=== PATIENT | male | born 1980 | race Caucasian/White ===

== ENCOUNTER 2021-01-14 16:08 | Emergency (ER) | payer SELFPAY ==
[~2021-01-14] VITALS: Ht 167.7 cm; Wt 70.8 kg
--- NOTE | 2021-01-14 16:20 | ED General ---
General Stated Complaint: METH USE Source of Information: Patient, EMS, Police Exam Limitations: No Limitations History of Present Illness Date Seen by Provider: Jan 14, 2021 Time Seen by Provider: 16:00 Initial Comments Khang is a 40-year-old male who presents to the emergency room by EMS also in police custody after being found running naked in the street. Khang states that he was cleaning a house and had done methamphetamine earlier in the day. He complains of being very hot and sweaty. He is concerned that he may have Covid. No symptoms of sore throat, runny nose or shortness of breath. He stat es he has been around people that have had Covid. He denies chest pain, abdominal pain, nausea vomiting. He states that he injured himself running through some bushes. Presents with multiple superficial scratches to his lower extremities. No obvious other external signs of injury. He is profusely diaphoretic on presentation. It is 103 degrees outside. No other chronic medical conditions other than smoking and using IV meth. He does smoke cigarettes. All other review of systems reviewed and negative except as stated. Timing/Duration: 1 Hour Severity: Moderate Associated Systoms: Diaphoresis Allergies and Home Medications Allergies Coded Allergies: Penicillins (Verified Allergy, Unknown, HIVES, 12/26/11) Patient Home Medication List Home Medication List Reviewed: Yes Review of Systems Review of Systems Constitutional: see HPI, diaphoresis EENTM: no symptoms reported Respiratory: cough Cardiovascular: no symptoms reported Gastrointestinal: no symptoms reported Genitourinary: no symptoms reported Musculoskeletal: no symptoms reported Skin: other (Superficial scratches to the lower extremities) Psychiatric/Neurological: Anxiety, Other (Obviously intoxicated) Physical Exam Vital Signs Vital Signs - First Documented 01/14/21 16:11 Temp 37.3 Pulse 136 Resp 22 B/P (MAP) 128/92 (104) Pulse Ox 98 O2 Delivery Room Air Capillary Refill : Height, Weight, BMI Height: '" Weight: lbs. oz. kg; BMI Method:Estimated General Appearance: WD/WN, Anxious, Mild Distress Eyes: Bilateral Eye Normal Inspection, Bilateral Eye PERRL, Bilateral Eye EOMI Neck: Normal Inspection Respiratory: Lungs Clear, Normal Breath Sounds, No Accessory Muscle Use, No Respiratory Distress Cardiovascular: Regular Rate, Rhythm Gastrointestinal: Non Tender, Soft Extremity: Normal Range of Motion, Non Tender, No Calf Tenderness Neurologic/Psychiatric: Alert, Oriented x3, No Motor/Sensory Deficits, Normal Mood/Affect, Other (Obviously intoxicated with pressured speech, flight of ideas) Skin: Normal Color, Warm/Dry, Other (Holdable superficial scratches to the bilateral lower extremities) Progress/Results/Core Measures Suspected Sepsis SIRS Temperature: Pulse: Respiratory Rate: Blood Pressure / Mean: Results/Orders Lab Results Laboratory Tests Test 01/14/21 16:15 Range/Units SARS-CoV-2 RNA (RT-PCR) Not Detected Not Detecte My Orders Orders - PRAVEENA DALTON MD Covid 19 Inhouse Test (01/14/21 16:15) Vital Signs/I&O 01/14/21 16:11 Temp 37.3 Pulse 136 Resp 22 B/P (MAP) 128/92 (104) Pulse Ox 98 O2 Delivery Room Air Capillary Refill : Progress Note : Time: 17:34 Progress Note covid not detected. will discharge to home Departure Impression Primary Impression: Methamphetamine intoxication Disposition: 01 HOME, SELF-CARE Condition: Stable Departure-Patient Inst. Decision time for Depature: 16:19 Referrals: NO,LOCAL PHYSICIAN (PCP/Family) Primary Care Physician Patient Instructions: Drug Abuse and Drug Addiction (DC) Add. Discharge Instructions: try and stop using meth. get your covid vaccine. PRAVEENA DALTON MD Jan 14, 2021 16:20
[2021-01-14 18:08] VITALS: BP 132/88
== END 2021-01-14 17:55 | disposition home or self-care (01) ==
LOC: EDUNIT# 16:08 → ER 16:13
DX: F15.929 Other stimulant use, unspecified with intoxication, unspecified (principal); F17.210 Nicotine dependence, cigarettes, uncomplicated; Z20.822 Contact with and (suspected) exposure to COVID-19
CPT/HCPCS: 87636; 99284

== ENCOUNTER 2022-02-03 17:31 | Emergency (ER) | payer SELFPAY ==
[~2022-02-03] VITALS: Ht 167.7 cm; Wt 79.4 kg
[2022-02-03] MEDS ORDERED: LACTATED RINGERS 1,000 ML IV ONE (18:00)
[2022-02-03 18:03] LABS: BASOPHILS % (AUTO) 0 % (0-10); EOSINOPHILS # (AUTO) 0.1 10^3/uL (0.0-0.3); EOSINOPHILS % (AUTO) 1 % (0-10); HEMATOCRIT 42 % (40-54); HEMOGLOBIN 14.9 g/dL (13.3-17.7); LYMPHOCYTES # (AUTO) 2.5 10^3/uL (1.0-4.0); LYMPHOCYTES % (AUTO) 34 % (12-44); MEAN CORPUSCULAR HEMOGLOBIN 32 pg (25-34); MEAN CORPUSCULAR HGB CONC 36 g/dL (32-36); MEAN CORPUSCULAR VOLUME 90 fL (80-99); MONOCYTES # (AUTO) 0.5 10^3/uL (0.0-1.0); MONOCYTES % (AUTO) 7 % (0-12); NEUTROPHILS # (AUTO) 4.3 10^3/uL (1.8-7.8); NEUTROPHILS % (AUTO) 58 % (42-75); PLATELET COUNT 188 10^3/uL (130-400); WHITE BLOOD COUNT 7.4 10^3/uL (4.3-11.0)
[2022-02-03 18:09] LABS: ALBUMIN 3.8 GM/DL (3.2-4.5); CHLORIDE 106 MMOL/L (98-107); POTASSIUM 3.2 MMOL/L (3.6-5.0); SODIUM 138 MMOL/L (135-145)
--- NOTE | 2022-02-03 18:09 | ED General ---
General Chief Complaint: Substance Abuse Stated Complaint: DRUG USE Nursing Triage Note: Pt arrives via EMS to ED2. Pt reports taking meth 1 hour [employer], stated he turned bright red, took 4 benadryl because he believed he was having an allergic reaction. Pt denies pain. Pt is red, but EMS reports redness has decreased since they arrived on scene. Source of Information: Patient History of Present Illness Date Seen by Provider: Feb 03, 2022 Time Seen by Provider: 17:50 Initial Comments PT ARRIVES VIA EMS STATES HE SHOT UP METH AND THINKS HE HAD AN ALLERGIC REACTION--INJECTED ABOUT AN HOUR PRIOR TO ARRIVAL STATES HE TURNED BRIGHT RED AND HAD A SOME ITCHING ALL OVER NO SWELLING ANYWHERE NO DIFFICULTY BREATHING NO NAUSEA/VOMITING STATES HE SHOT UP IN HIS LEFT ARM--NO LOCAL REACTION AT INJECTION SITE. PT WITH LONGSTANDING HISTORY OF IV DRUG USE, NEVER HAD THIS REACTION BEFORE PT STATES HE HAS NOT USED ANY OTHER DRUGS TODAY, BUT DID DRINK "1 BEER" EARLIER TODAY PT TOOK 4 BENADRYL PRIOR TO ARRIVAL, STATES HE IS NO LONGER ITCHING, BUT IS STILL RED. STATES HE HAS BEEN OUT IN THE HEAT MOST OF THE DAY--FROM [id number] TODAY--TEMP IN THE 90'S TODAY PT IS ESSENTIALLY HOMELESS, WAS "STAYING WITH SOMEONE" EARLIER TODAY, BUT GOT KICKED OUT "AFTER ALL THIS HAPPENED" --JUST PRIOR TO ARRIVAL. PT DENIES ANY MEDICAL PROBLEMS, BUT DOES NOT GO TO DR. PCP: NONE Allergies and Home Medications Allergies Coded Allergies: Penicillins (Verified Allergy, Unknown, HIVES, 12/26/11) Patient Home Medication List Home Medication List Reviewed: Yes Ciprofloxacin HCl (Ciprofloxacin HCl) 500 Mg Tablet, 500 MG PO BID Prescribed by: MILADIS FERRARI on 02/03/22 [id number] Review of Systems Review of Systems Constitutional: no symptoms reported EENTM: no symptoms reported Respiratory: no symptoms reported Cardiovascular: no symptoms reported Gastrointestinal: no symptoms reported Genitourinary: no symptoms reported Musculoskeletal: no symptoms reported Skin: see HPI Psychiatric/Neurological: No Symptoms Reported Hematologic/Lymphatic: No Symptoms Reported Immunological/Allergic: no symptoms reported Past Bdqnyoa-Kaoxwg-Oyzipt Hx Patient Social History Tobacco Use?: Yes Tobacco type used: Cigarettes Smoking Status: Current Everyday Smoker Substance use?: Yes Substance type: Methamphetamine, Marijuana, Other Substance frequency: Daily Alcohol Use?: Yes Alcohol type: Beer, Hard Liquor Alcohol Frequency: Couple times a week Immunizations Up To Date Tetanus Booster (TDap): Unknown Past Medical History Surgeries: No Respiratory: No Cardiac: No Neurological: No Reproductive Disorders: No Genitourinary: No Gastrointestinal: No Musculoskeletal: No Endocrine: No HEENT: No Cancer: No Psychosocial: Yes (SUBSTANCE ABUSE) Integumentary: No Blood Disorders: No Family Medical History SOCIAL HISTORY: -SMOKES 1 PPD -DRINKS A COUPLE OF TIMES A WEEK -DRUGS--STATES HE SMOKED AND SNORTED COCAINE "IN THE PAST", AND CURRENTLY USES IV METH ,AND SMOKES THC Physical Exam Vital Signs Vital Signs - First Documented 02/03/22 17:31 Temp 36.8 Pulse 108 Resp 18 B/P (MAP) 149/91 (110) Pulse Ox 97 O2 Delivery Room Air Capillary Refill : Height, Weight, BMI Height: '" Weight: lbs. oz. kg; 28.00 BMI Method:Estimated General Appearance: No Apparent Distress, WD/WN, Other (SPEECH RAPID AND SOMEWHAT MUMBLED. ) HEENT: PERRL/EOMI, TMs Normal, Normal ENT Inspection, Other (EYES BLOODSHOT; NO DRAINAGE OR WATERING OR PERIORBITAL SWELLING. NO FACIAL OR INTRA-ORAL SWELLING. 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 Skin: Normal Color, Warm/Dry, Tattoos/Piercings (EXTENSIVE TATTOOS; SKIN SLIGHTLY FLUSHED BUT NO RASH) Progress/Results/Core Measures Suspected Sepsis SIRS Temperature: Pulse: 108 Respiratory Rate: 18 Laboratory Tests 02/03/22 17:36: White Blood Count 7.4 Blood Pressure 149 /91 Mean: 110 Laboratory Tests 02/03/22 17:36: Creatinine 1.24, Platelet Count 188, Total Bilirubin 0.8 Results/Orders Lab Results Laboratory Tests Test 02/03/22 17:36 02/03/22 18:15 Range/Units White Blood Count 7.4 4.3-11.0 10^3/uL Red Blood Count 4.64 4.30-5.52 10^6/uL Hemoglobin 14.9 13.3-17.7 g/dL Hematocrit 42 40-54 % Mean Corpuscular Volume 90 80-99 fL Mean Corpuscular Hemoglobin 32 25-34 pg Mean Corpuscular Hemoglobin Concent 36 32-36 g/dL Red Cell Distribution Width 12.1 10.0-14.5 % Platelet Count 188 130-400 10^3/uL Mean Platelet Volume 10.0 9.0-12.2 fL Immature Granulocyte % (Auto) 0 % Neutrophils (%) (Auto) 58 42-75 % Lymphocytes (%) (Auto) 34 12-44 % Monocytes (%) (Auto) 7 0-12 % Eosinophils (%) (Auto) 1 0-10 % Basophils (%) (Auto) 0 0-10 % Neutrophils # (Auto) 4.3 1.8-7.8 10^3/uL Lymphocytes # (Auto) 2.5 1.0-4.0 10^3/uL Monocytes # (Auto) 0.5 0.0-1.0 10^3/uL Eosinophils # (Auto) 0.1 0.0-0.3 10^3/uL Basophils # (Auto) 0.0 0.0-0.1 10^3/uL Immature Granulocyte # (Auto) 0.0 0.0-0.1 10^3/uL Sodium Level 138 135-145 MMOL/L Potassium Level 3.2 L 3.6-5.0 MMOL/L Chloride Level 106 98-107 MMOL/L Carbon Dioxide Level 19 L 21-32 MMOL/L Anion Gap 13 5-14 MMOL/L Blood Urea Nitrogen 20 H 7-18 MG/DL Creatinine 1.24 0.60-1.30 MG/DL Estimat Glomerular Filtration Rate 76 BUN/Creatinine Ratio 16 Glucose Level 202 H 70-105 MG/DL Calcium Level 8.5 8.5-10.1 MG/DL Corrected Calcium 8.7 8.5-10.1 MG/DL Magnesium Level 1.7 1.6-2.4 MG/DL Total Bilirubin 0.8 0.1-1.0 MG/DL Aspartate Amino Transf (AST/SGOT) 23 5-34 U/L Alanine Aminotransferase (ALT/SGPT) 38 0-55 U/L Alkaline Phosphatase 54 40-136 U/L Total Protein 6.5 6.4-8.2 GM/DL Albumin 3.8 3.2-4.5 GM/DL Serum Alcohol < 10 <10 MG/DL Urine Color ORANGE Urine Clarity CLEAR Urine pH 5.5 5-9 Urine Specific [place] >=1.030 1.016-1.022 Urine Protein TRACE H NEGATIVE Urine Glucose (UA) NEGATIVE NEGATIVE Urine Ketones NEGATIVE NEGATIVE Urine Nitrite NEGATIVE NEGATIVE Urine Bilirubin NEGATIVE NEGATIVE Urine Urobilinogen 1.0 < = 1.0 MG/DL Urine Leukocyte Esterase NEGATIVE NEGATIVE Urine RBC (Auto) NEGATIVE NEGATIVE Urine RBC NONE /HPF Urine WBC 5-10 H /HPF Urine Squamous Epithelial Cells RARE /HPF Urine Crystals NONE /LPF Urine Bacteria TRACE /HPF Urine Casts PRESENT /LPF Urine Hyaline Casts RARE /LPF Urine Granular Casts 2-5 H /LPF Urine Mucus NEGATIVE /LPF Urine Culture Indicated YES Urine Opiates Screen NEGATIVE NEGATIVE Urine Oxycodone Screen NEGATIVE NEGATIVE Urine Methadone Screen NEGATIVE NEGATIVE Urine Propoxyphene Screen NEGATIVE NEGATIVE Urine Barbiturates Screen NEGATIVE NEGATIVE Ur Tricyclic Antidepressants Screen NEGATIVE NEGATIVE Urine Phencyclidine Screen NEGATIVE NEGATIVE Urine Amphetamines Screen POSITIVE H NEGATIVE Urine Methamphetamines Screen POSITIVE H NEGATIVE Urine Benzodiazepines Screen NEGATIVE NEGATIVE Urine Cocaine Screen NEGATIVE NEGATIVE Urine Cannabinoids Screen POSITIVE H NEGATIVE My Orders Orders - MILADIS FERRARI DO Ed Iv/Invasive Line Start (02/03/22 17:55) Ekg Tracing (02/03/22 17:55) Monitor-Rhythm Ecg Trace Only (02/03/22 17:55) Ed Iv/Invasive Line Start (02/03/22 17:55) Lactated Ringers (Lr 1000 Ml Iv Solution (02/03/22 18:00) Alcohol (02/03/22 17:55) Cbc With Automated Diff (02/03/22 17:55) Comprehensive Metabolic Panel (02/03/22 17:55) Drug Screen Stat (Urine) (02/03/22 17:55) Magnesium (02/03/22 17:55) Ua Culture If Indicated (02/03/22 17:55) Urine Culture (02/03/22 18:15) Neis Raymon Dna Urine Test (02/03/22 18:41) Chlamydia Trachomatis Urine (02/03/22 18:41) Ciprofloxacin Tablet (Cipro Tablet) (02/03/22 18:45) Medications Given in ED Current Medications Medications Dose Ordered Sig/Micah Route Start Time Stop Time Status Last Admin Dose Admin Lactated Ringer's 1,000 ml @ 0 mls/hr Q0M ONCE IV 02/03/22 18:00 02/03/22 18:01 DC 02/03/22 18:01 999 MLS/HR Vital Signs/I&O 02/03/22 02/03/22 17:31 18:59 Temp 36.8 36.8 Pulse 108 90 Resp 18 16 B/P (MAP) 149/91 (110) 139/94 Pulse Ox 97 98 O2 Delivery Room Air Room Air Capillary Refill : Blood Pressure Mean: 110 Progress Note : Progress Note PT GIVEN IV FLUIDS PT STATES HE IS FEELING BETTER, AND SKIN IS NO LONGER FLUSHED AT DISMISSAL DISCUSSED THE IMPORTANCE OF ESTABLISHING CARE WITH LOCAL DR, AND FOR FOLLOW UP ON ELEVATED BLOOD SUGAR--LIST OF LOCAL PHYSICIANS PROVIDED. Departure Impression Primary Impression: IV METHAMPHETAMINE USE Additional Impressions: Hyperglycemia Hypokalemia Homeless UTI (urinary tract infection) Disposition: HOME, SELF-CARE Condition: Stable Departure-Patient Inst. Decision time for Depature: 18:40 Referrals: NO,LOCAL PHYSICIAN (PCP) Primary Care Physician Patient Instructions: ALCOHOL AND SUBSTANCE ABUSE, High Blood Sugar, Adult, Hypokalemia (DC) Add. Discharge Instructions: NO DRUGS OR ALCOHOL INCREASE YOUR CLEAR LIQUIDS--WATER, BROTH, JELLO, GATORADE FOLLOW UP WITH DRDaly OF CHOICE NEXT WEEK FOR FURTHER CARE--CALL ON SATURDAY TO SCHEDULE APPOINTMENT--LIST PROVIDED All discharge instructions reviewed with patient and/or family. Voiced understanding. Scripts Ciprofloxacin HCl (Ciprofloxacin HCl) 500 Mg Tablet 500 MG PO BID, #14 TAB Prov: MILADIS FERRARI DO 02/03/22 Work/School Note: Local Medical Staff Listing MILADIS FERRARI DO Feb 03, 2022 18:09
[2022-02-03 18:10] LABS: CALCIUM 8.5 MG/DL (8.5-10.1)
[2022-02-03 18:11] LABS: GLUCOSE 202 MG/DL (70-105)
[2022-02-03 18:12] LABS: CARBON DIOXIDE 19 MMOL/L (21-32); TOTAL PROTEIN 6.5 GM/DL (6.4-8.2)
[2022-02-03 18:13] LABS: BILIRUBIN,TOTAL 0.8 MG/DL (0.1-1.0)
[2022-02-03 18:15] LABS: ALKALINE PHOSPHATASE 54 U/L (40-136); CREATININE SERUM 1.24 MG/DL (0.60-1.30); GFR ESTIMATED 76
[2022-02-03 18:16] LABS: BUN/CREATININE RATIO 16
[2022-02-03 18:18] LABS: ALANINE AMINOTRANSFERASE 38 U/L (0-55); MAGNESIUM 1.7 MG/DL (1.6-2.4)
[2022-02-03 18:21] LABS: BILIRUBIN,URINE NEGATIVE (NEGATIVE); CLARITY,URINE CLEAR; COLOR,URINE ORANGE; GLUCOSE, URINE (UA) NEGATIVE (NEGATIVE); KETONES,URINE NEGATIVE (NEGATIVE); LEUKOCYTE ESTERASE ,URINE NEGATIVE (NEGATIVE); NITRITE,URINE NEGATIVE (NEGATIVE); PH,URINE 5.5 (5-9); PROTEIN,URINE TRACE (NEGATIVE)
[2022-02-03 18:30] LABS: BACTERIA,URINE TRACE /HPF; HYALINE CASTS, URINE RARE /LPF; SQUAMOUS EPITHELIAL CELL,UR RARE /HPF
[2022-02-03 18:33] LABS: AMPHETAMINE SCREEN, URINE POSITIVE (NEGATIVE); BARBITURATE SCREEN URINE NEGATIVE (NEGATIVE); BENZODIAZEPINES SCREEN URINE NEGATIVE (NEGATIVE); CANNABINOID SCREEN, URINE POSITIVE (NEGATIVE); COCAINE SCREEN URINE NEGATIVE (NEGATIVE); METHADONE STAT NEGATIVE (NEGATIVE); OPIATE SCREEN URINE NEGATIVE (NEGATIVE); OXYCODONE STAT NEGATIVE (NEGATIVE); PROPOXYPHENE STAT NEGATIVE (NEGATIVE); TRICYCLIC ANTIDEPRESSANTS SCRE NEGATIVE (NEGATIVE)
[2022-02-03] MEDS ORDERED: CIPR500T5 PO (18:40)
[2022-02-03] MEDS ORDERED: CIPROFLOXACIN 500 MG (CIPRO) TABLET PO SCH (18:45)
[2022-02-03 18:59] VITALS: BP 139/94
== END 2022-02-03 18:59 | disposition home or self-care (01) ==
LOC: EDUNIT# 17:31 → ER 17:32
DX: F15.90 Other stimulant use, unspecified, uncomplicated (principal); N39.0 Urinary tract infection, site not specified; E87.6 Hypokalemia; R73.9 Hyperglycemia, unspecified; F17.210 Nicotine dependence, cigarettes, uncomplicated; Z59.00 Homelessness unspecified; Z28.310 Unvaccinated for COVID-19
CPT/HCPCS: 80053; 80306; 81000; 83735; 85025; 87088; 87491; 87591; 93041; 99284; G0480; 36415; 80320; 87077; 87186; 93005